=== PATIENT | female | born 1990 | race American Indian/Alaskan Native ===

== ENCOUNTER 2016-12-03 21:32 | Emergency (ER) | payer SELFPAY ==
[2016-12-03 22:31] LABS: Basophils % (Auto) 0.2 % (0.0-1.8); Eosinophils % (Auto) 0.8 % (0.0-4.3); Hematocrit 28.8 % (30.3-42.9); Hemoglobin 9.3 gm/dl (10.1-14.3); Mean Corpuscular HGB Conc 32 % (30-34); Mean Corpuscular Hemoglobin 29 pg (28-32); Mean Corpuscular Volume 89 fl (79-97); Platelet Count 207 K/mm3 (140-440); Red Blood Count 3.24 M/mm3 (3.65-5.03); Red Cell Distribution Width 14.7 % (13.2-15.2); White Blood Count 9.1 K/mm3 (4.5-11.0)
[2016-12-03 23:17] LABS: Alanine Aminotransferase 5 units/L (7-56); Albumin 3.3 g/dL (3.9-5); Alkaline Phosphatase 67 units/L (35-129); Anion Gap 19 mmol/L; Bilirubin,Total < 0.20 mg/dL (0.1-1.2); Blood Urea Nitrogen 10 mg/dL (7-17); Calcium 8.4 mg/dL (8.4-10.2); Carbon Dioxide 20 mmol/L (22-30); Chloride 102.2 mmol/L (98-107); Glucose 103 mg/dL (65-100); Lipase 48 units/L (13-60); Potassium 3.8 mmol/L (3.6-5.0); Sodium 137 mmol/L (137-145); Total Protein 6.6 g/dL (6.3-8.2)
--- NOTE | 2016-12-04 00:13 | Ultrasound Report ---
FINAL REPORT PROCEDURE: US OB \T\gt; = 14 WEEKS FETUS TECHNIQUE: Real-time transabdominal sonography of the uterus, placenta, amniotic fluid, adnexa, and fetus was performed with image documentation. Measurements were obtained to determine age/size. M-mode Doppler was used to document heartbeat. CPT 29274 HISTORY: pelvic pressure COMPARISON: No prior studies are available for comparison. FINDINGS: ADDITIONAL GESTATION: None. GENERAL: IUP: Single living intrauterine . Position: Vertex Placental position: Fundus, without previa. Amniotic fluid volume: Normal. MATERNAL: Uterus: Within normal limits. Cervical length: 4 cm. Internal Os: Closed. FETUS: Heart rate and rhythm: 160 beats per minute anatomic survey: Normal. MEASUREMENTS: BPD: 5.3 centimeter HC: 20 centimeter AC: 17.8 centimeter FL: 4 centimeter Mean Gestational Age (composite criteria): 22 weeks 3 days Ratio biometry: Normal. Estimated Weight: 527 grams. Interval growth: No prior studies Estimated Due Date (earliest scan): 04/05/2017 IMPRESSION: Single intrauterine gestation at 22 weeks 3 days. Estimated due date: 04/05/2017. Normal survey.
[2016-12-04 00:36] LABS: Bacteria,Urine 2+ /HPF (Negative); Bilirubin,Urine NEG (Negative); Blood,Urine NEG (Negative); Ketones,Urine NEG (Negative); Leukocyte Esterase,Urine TR (Negative); Mucus,Urine 3+ /HPF; Nitrite,Urine NEG (Negative)
[2016-12-04 00:48] VITALS: BP 100/55
--- NOTE | 2016-12-04 01:05 | Emergency Department Report ---
HPI - General Chief Complaint: Abdominal Pain Time Seen by Provider: 12/04/16 00:34 - HPI HPI: This is a 25-year-old Afro-[place]ish female presents to the emergency department with a complaint of some lower abdominal and/or pelvic discomfort is been going on since yesterday morning. The patient's last menstrual cycle was at the end of June and while she has not taken any home tests she believes she is . She denies any vaginal bleeding, dysuria, vaginal discharge, fever , nausea, vomiting. She is not taken anything for symptoms prior to presentation. If the patient is she will be with one previous . She does not have a primary care doctor or [facility]. No recent travel or sick contacts at home. ED Past Medical Hx - Past Medical History Previous Medical History?: No - Surgical History Past Surgical History?: Yes Additional Surgical History: c section x 1 - Social History Smoking Status: Current Every Day Smoker - Medications Home Medications: Home Medications Medication Instructions Recorded Confirmed Last Taken Type Vit No.130/Iron/FA 1 each PO QDAY #30 tablet 12/04/16 Unknown Rx [ Tablet] ED Review of Systems ROS: Stated complaint: STOMACH PAIN Other details as noted in HPI Comment: All other systems reviewed and negative Constitutional: denies: chills, fever Eyes: denies: eye pain, eye discharge, vision change ENT: denies: ear pain, throat pain Respiratory: denies: cough, shortness of breath, wheezing Cardiovascular: denies: chest pain, palpitations Gastrointestinal: abdominal pain. denies: vomiting Genitourinary: denies: urgency, dysuria, discharge Musculoskeletal: denies: back pain, joint swelling, arthralgia Skin: denies: rash, lesions Neurological: denies: headache, weakness, paresthesias Physical Exam - Physical Exam Vital Signs: Vital Signs 12/03/16 12/04/16 12/04/16 21:43 00:47 00:48 Temperature 98.3 F 98 F Pulse Rate 76 64 Respiratory 20 20 20 Rate Blood Pressure 131/73 Blood Pressure 100/55 [Left] O2 Sat by Pulse 100 100 Oximetry Physical Exam: GENERAL: The patient is well-developed well-nourished. HEENT: Normocephalic. Atraumatic. Extraocular motions are intact. Patient has moist mucous membranes. Pupils equal reactive to light bilaterally. NECK: Supple. Trachea is midline. CHEST/LUNGS: Clear to auscultation. There is no respiratory distress noted. HEART/CARDIOVASCULAR: Regular. There is no tachycardia. There is no gallop rub or murmur. ABDOMEN: Abdomen is soft, nontender to palpation. Gravid uterus palpable above the umbilicus. Patient has normal bowel sounds. SKIN: Skin is warm and dry. NEURO: The patient is awake, alert, and oriented. The patient is cooperative. The patient has no focal neurologic deficits. The patient has normal speech. MUSCULOSKELETAL: There is no tenderness or deformity. There is no limitation range of motion. There is no evidence of acute injury. ED Course Vital Signs 12/03/16 12/04/16 12/04/16 21:43 00:47 00:48 Temperature 98.3 F 98 F Pulse Rate 76 64 Respiratory 20 20 20 Rate Blood Pressure 131/73 Blood Pressure 100/55 [Left] O2 Sat by Pulse 100 100 Oximetry ED Medical Decision Making - Lab Data Result diagrams: 12/03/16 21:48 12/03/16 21:48 - Radiology Data Radiology results: report reviewed Obstetric/ ultrasound shows a live intrauterine at about 22 weeks. - Medical Decision Making 25-year-old female presents to the emergency department with some pelvic discomfort and suspicion of . There is no vaginal bleeding or discharge. Labs are unremarkable including no urinary tract infection. No electrolyte abnormalities, renal insufficiency or glucose abnormalities. ultrasound shows a live intrauterine at about 22 weeks. No other complications found. Vital signs stable including being afebrile. Patient was discharged home with a prescription for vitamins and multiple referrals for [facility] W[facility]ING[facility]ACHINE [facility]PERATOR. She will return to the ER with any development of vaginal bleeding, worsening of her symptoms, or any acute distress. - Differential Diagnosis , threatened miscarriage, spontaneous miscarriage, fibroids Critical Care Time: No Critical care attestation.: If time is entered above; I have spent that time in minutes in the direct care of this critically ill patient, excluding procedure time. 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 Return to the emergency department with any vaginal bleeding, worsening of her symptoms, or any acute distress. I have prescribed vitamins. You can take Tylenol, every 4 hours, as needed for your discomfort. Otherwise do not take any medications that are not prescribed by a physician. Prescriptions: Vit No.130/Iron/FA [ Tablet] 1 each PO QDAY #30 tablet Referrals: PRIMARY CARE [Primary Care Provider] - 3-5 Days [facility] [Provider Group] - 3-5 Days [facility] [Provider Group] - 3-5 Days [facility] [Provider Group] - 3-5 Days Time of Disposition: 01:32
== END 2016-12-04 01:40 | disposition home or self-care (01) ==
LOC: ED 21:32
DX: O26.892 Other specified pregnancy related conditions, second trimester (principal); O99.332 Smoking (tobacco) complicating pregnancy, second trimester; R10.32 Left lower quadrant pain; Z3A.22 22 weeks gestation of pregnancy
CPT/HCPCS: 36415; 76805; 80053; 81001; 83690; 84702; 85025; 86850; 86900; 86901

== ENCOUNTER 2017-11-05 00:26 | Emergency (ER) | payer OTHER, MEDICAID ==
[2017-11-05 00:54] VITALS: BP 127/79
[2017-11-05] MEDS ORDERED: TYLENOL PO ONE (02:14)
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
== END 2017-11-05 05:45 | disposition home or self-care (01) ==
LOC: ED 00:26
DX: R51 Headache (principal); F17.200 Nicotine dependence, unspecified, uncomplicated; V89.2XXA Person injured in unspecified motor-vehicle accident, traffic, initial encounter; Y93.89 Activity, other specified; Y92.89 Other specified places as the place of occurrence of the external cause; Y99.8 Other external cause status
CPT/HCPCS: 99282